=== PATIENT | male | born 2000 | race Two or more races ===

== ENCOUNTER 2022-04-19 18:54 | Emergency (ER) | payer MEDICAID, OTHER ==
[~2022-04-19] VITALS: Ht 170.2 cm; Wt 57.9 kg
[2022-04-19 19:27] VITALS: BP 141/76
== END 2022-04-20 00:43 | disposition left against medical advice (07) ==
LOC: ER 18:54
DX: M79.10 Myalgia, unspecified site (principal); Z53.21 Procedure and treatment not carried out due to patient leaving prior to being seen by health care provider; V89.2XXA Person injured in unspecified motor-vehicle accident, traffic, initial encounter; Y93.89 Activity, other specified; Y92.89 Other specified places as the place of occurrence of the external cause; Y99.8 Other external cause status